=== PATIENT | male | born 1950 | race Caucasian/White ===

== ENCOUNTER 2019-10-11 07:19 | Outpatient (CLI) | payer MEDICARE, OTHER, SELFPAY ==
--- NOTE | ~2019-10-11 | US_ITS ---
EXAMINATION: US abdomen limited EXAM DATE: 10/11/2019 08:23 INDICATION: 2 abnormal abdominal palpable regions, swelling. History of laparoscopic prostatectomy an d cholecystectomy. TECHNIQUE: Multiple grayscale and Doppler images of the symptomatic abdominal soft tissue were obtain ed (by a technologist who performed the scan) and subsequently reviewed. There is no prior study for comparison. FINDINGS: 1st region was scanned, annotated mid chest above umbilicus area of palpable abnormality. This region demonstrates small defect of the abdominal wall fascia, musculature. Mildly hypoechoic region along the musculature was measured at 1.2 x 1.3 cm, could be scar tissue or tiny amount of intra-abdominal fat herniation through the abdominal wall. The 2nd region was scanned annotated right midabdomen, which again demonstrates small abdominal wall defect, there is likely small herniation of intra-abdominal fat extending through this, region measur ed at 1.8 x 1.5 x 1.0 cm. IMPRESSION: Probable 2 small abdominal wall defects at regions of palpable abnormality, at least one of which likely contains small amount of herniated intra-abdominal fat. Reviewed, dictated and finalized at location A. IMPRESSION: Probable 2 small abdominal wall defects at regions of palpable abno rmality, at least one of which likely contains small amount of herniated intra- abdominal fat.
== END 2019-10-11 07:20 | disposition home or self-care (01) ==
LOC: ANHIMG 07:34
PROVIDERS: PCP Family Medicine; Visit Provider Physician Assistant
DX: K46.9 Unspecified abdominal hernia without obstruction or gangrene (principal); R19.00 Intra-abdominal and pelvic swelling, mass and lump, unspecified site; Z11.59 Encounter for screening for other viral diseases
CPT/HCPCS: 76705